=== PATIENT | female | born 1990 | race Caucasian/White ===

== ENCOUNTER → 2020-11-09 | Outpatient (CLI) | payer OTHER ==
[2020-11-09 09:23] LABS: BUN 12 mg/dl (7-24); CHLORIDE 107 mmol/L (98-107); POTASSIUM 4.4 mmol/L (3.5-5.1); SGOT/AST 12 IU/L (3-35); SGPT/ALT 25 U/L (12-78); SODIUM 137 mmol/L (136-145); TOTAL PROTEIN 7.7 gm/dL (6.4-8.2)
[2020-11-09 09:32] LABS: ALKALINE PHOSPHATASE 92 U/L (45-117); FREE T4 0.88 ng/dl (0.76-1.46)
[2020-11-10 08:08] LABS: TOTAL T3 (TT3) 121 ng/dL (71-180)
[2020-11-11 01:06] LABS: INSULIN-LIKE GROWTH FACTOR-1 139 ng/mL (91-308)
[2020-11-15 01:06] LABS: METANEPHRINE, PLASMA 16.6 pg/mL (0.0-88.0); NORMETANEPHRINE, PLASMA 65.9 pg/mL (0.0-107.7)
== END | disposition home or self-care (01) ==
LOC: LAB 08:34
PROVIDERS: ATTEND Internal Medicine Endocrinology, Diabetes & Metabolism
DX: R61 Generalized hyperhidrosis (principal)

== ENCOUNTER → 2023-12-06 | Outpatient (CLI) | payer OTHER | LOC: US 08:30 | PROVIDERS: ATTEND Nurse Practitioner Family | DX: M54.6 Pain in thoracic spine (principal); R10.9 Unspecified abdominal pain ==